=== PATIENT | male | born 1955 | race Caucasian/White ===

== ENCOUNTER 2019-05-08 13:25 | Emergency (ER) | payer MEDICAID, OTHER ==
[~2019-05-08] VITALS: Ht 172.7 cm; Wt 83.9 kg
[2019-05-08 14:31] LABS: Basophils # (auto) 0 uL; Basophils % (auto) 0.3 % (0.0-2.0); Eosinophils # (auto) 0 uL; Hematocrit 45.5 % (41.0-53.0); Hemoglobin 15.7 g/dL (13.5-17.5); Lymphocytes # (auto) 0.6 uL; Mean Corpuscular Hemoglobin 29.5 pg (28.0-32.0); Mean Corpuscular Hgb Conc. 34.5 g/dL (32.0-36.0); Mean Corpuscular Volume 85.5 fL (80.0-100.0); Monocytes # (auto) 0.8 uL; Monocytes % (auto) 13.4 % (0.0-12.0); Neutrophils # (auto) 4.7 uL; Neutrophils % (auto) 76.3 % (37.0-80.0); Nucleated Red Blood Cells % 0.5 %; Platelet Count (auto) 279 10^3/uL (140-450); Red Blood Cells 5.32 10^6/uL (4.5-5.90); Red Cell Distribution Width 14.1 % (11.8-14.3); White Blood Cell 6.1 10^3/uL (4.4-10.8)
[2019-05-08 14:52] LABS: Alanine Aminotransferase 34 U/L (16-61); Albumin 3.6 g/dL (3.4-5.0); Anion Gap 8 (5-15); Aspartate Aminotransferase 31 U/L (15-37); BUN/Creatinine Ratio 9.8; Blood Urea Nitrogen 13 mg/dL (7-18); Calcium 8.6 mg/dL (8.5-10.1); Carbon Dioxide 25 mmol/L (21-32); Chloride 101 mmol/L (98-107); GFR African American 71 mL/min; GFR Non-African American 59 mL/min; Glucose 95 mg/dL (74-106); Potassium 4.4 mmol/L (3.5-5.1); Sodium 134 mmol/L (136-145)
[2019-05-08 14:57] LABS: Alkaline Phosphatase 102 U/L (45-117); Bilirubin, Total 0.3 mg/dL (0.2-1.0); Total Protein 7.8 g/dL (6.4-8.2)
[2019-05-08 17:49] VITALS: BP 139/95
== END 2019-05-08 17:53 | disposition home or self-care (01) ==
LOC: ER 13:25
DX: R07.89 Other chest pain (principal); F41.9 Anxiety disorder, unspecified; F17.210 Nicotine dependence, cigarettes, uncomplicated
CPT/HCPCS: 36415; 71046; 80053; 84484; 85025; 93005

== ENCOUNTER 2019-05-14 18:16 | Emergency (ER) | payer MEDICAID ==
[~2019-05-14] VITALS: Ht 172.7 cm; Wt 86.2 kg
[2019-05-14 20:35] LABS: Basophils # (auto) 0 uL; Eosinophils # (auto) 0 uL; Hemoglobin 17.6 g/dL (13.5-17.5); Monocytes # (auto) 0.3 uL
[2019-05-14 20:37] LABS: Basophils % (auto) 0.2 % (0.0-2.0); Eosinophils % (auto) 0.1 % (0.0-7.0); Hematocrit 51.4 % (41.0-53.0); Lymphocytes # (auto) 0.6 uL; Lymphocytes % (auto) 8.3 % (10.0-50.0); Mean Corpuscular Hemoglobin 29.4 pg (28.0-32.0); Mean Corpuscular Hgb Conc. 34.3 g/dL (32.0-36.0); Mean Corpuscular Volume 85.6 fL (80.0-100.0); Monocytes % (auto) 3.8 % (0.0-12.0); Neutrophils % (auto) 87.6 % (37.0-80.0); Nucleated Red Blood Cells % 0.3 %; Platelet Count (auto) 138 10^3/uL (140-450); Red Cell Distribution Width 14.5 % (11.8-14.3); White Blood Cell 6.9 10^3/uL (4.4-10.8)
[2019-05-14 20:51] LABS: INR 2.11 (0.9-1.15)
[2019-05-14 20:53] LABS: Albumin 3.4 g/dL (3.4-5.0); Anion Gap 18 (5-15); Calcium 7.9 mg/dL (8.5-10.1); Carbon Dioxide 14 mmol/L (21-32); Chloride 99 mmol/L (98-107); Glucose 82 mg/dL (74-106); Magnesium 2.5 mg/dL (1.6-2.6); Potassium 5.1 mmol/L (3.5-5.1); Sodium 131 mmol/L (136-145)
[2019-05-14 21:03] LABS: Alkaline Phosphatase 188 U/L (45-117); BUN/Creatinine Ratio 17.9; Bilirubin, Total 2.2 mg/dL (0.2-1.0); Blood Urea Nitrogen 70 mg/dL (7-18); GFR African American 20 mL/min; GFR Non-African American 17 mL/min; Total Protein 7.2 g/dL (6.4-8.2)
[2019-05-14] MEDS: ASPirin 81 mg TAB PO ONE (21:22)
[2019-05-14] MEDS: SODIUM CHLORIDE 0.9% 1,000 ML IVB ONE (21:23)
[2019-05-14 21:35] LABS: Alanine Aminotransferase 9821 U/L (16-61)
[2019-05-14 21:45] LABS: Aspartate Aminotransferase 17575 U/L (15-37)
[2019-05-14] MEDS: MORPHINE SULF INJ 2 MG/ML SYRINGE 1ML IV ONE (22:02)
[2019-05-14] MEDS: cefTRIAXone 1GM/50ML D5W 50 ML IV ONE (22:02)
[2019-05-14] MEDS: ONDANSETRON HCL 4 MG/2 ML VIAL IV ONE (22:02)
[2019-05-14 23:15] LABS: Lactic Acid w/Reflex 3.4 mmol/L (0.4-2.0)
[2019-05-15] MEDS: HYDROmorphone HCL 2 MG/ML VL IV ONE (00:34)
[2019-05-15 01:01] VITALS: BP 122/79
== END 2019-05-15 01:33 | disposition short-term general hospital (02) ==
LOC: EDBD 18:16 → ER 18:20
DX: S22.42XA Multiple fractures of ribs, left side, initial encounter for closed fracture (principal); S20.212A Contusion of left front wall of thorax, initial encounter; N17.9 Acute kidney failure, unspecified; K72.00 Acute and subacute hepatic failure without coma; R10.9 Unspecified abdominal pain; J98.4 Other disorders of lung; F17.210 Nicotine dependence, cigarettes, uncomplicated; X58.XXXA Exposure to other specified factors, initial encounter; Y93.89 Activity, other specified; Y99.8 Other external cause status; Y92.89 Other specified places as the place of occurrence of the external cause
CPT/HCPCS: 36415; 71045; 71250; 74176; 80053; 82550; 83605; 83735; 83880; 84443; 84484; 85025; 85379; 85610; 85730; 87040; 93005; 96365; 96375; 99285; J0696; J1170; J2270; J2405; J7030